=== PATIENT | female | born 1985 | race Hispanic/Latino ===

== ENCOUNTER 2018-08-06 22:28 | Emergency (ER) | payer BC ==
[~2018-08-06] VITALS: Ht 152.4 cm; Wt 67.1 kg
--- OUTSIDE RECORDS SUMMARY | 2018-08-06 22:30 | XMS REPORT | Clinical Summary ---
Author Author [facility] Address Unknown Phone Unavailable Care Team Providers Care Targeting Acquisition Officer Name Role Phone Asked, No Pcp PCP Unavailable Allergies No Known Allergies Medications End Date Status Medication Sig Dispensed Refills Start Date 08/11/2018 Active cefdinir (OMNICEF) 300 MG Take 1 20 capsule 0 capsule capsule (300 9 mg total) by mouth 2 (two) times a day for 10 days. Active meloxicam (MOBIC) 15 mg Take 1 tablet 10 tablet 0 tablet (15 mg total) 9 by mouth daily as needed for mild pain for up to 10 doses. 08/04/2018 acetaminophen-codeine Take 1 tablet 10 tablet 0 (TYLENOL WITH CODEINE #3) by mouth 9 300-30 mg per tablet every 6 (six) hours as needed for moderate pain for up to 10 doses. Active Problems Not on file Encounters Care Team Description Date Type Specialty Rasheed Castellano, ANTIONETTE Lawson, Shine Alford, Pyelonephritis (Primary Dx); Migraine without aura and without status migrainosus, not intractable 08/01/2018 Emergency Emergency Medicine after 08/05/2017 Social History Date Tobacco Use Types Packs/Day Years Used Never Assessed Sex Assigned at Date Recorded Not on file Industry Job Start Date Occupation Not on file Not on file Not on file Travel End Travel History Travel Start No recent travel history available. Last Filed Vital Signs Time Taken Vital Sign Reading 08/01/2018 9:24 PM CDT Blood Pressure 127/84 08/01/2018 9:24 PM CDT Pulse 91 08/01/2018 9:24 PM CDT Temperature 37 C (98.6 F) 08/01/2018 9:24 PM CDT Respiratory Rate 15 08/01/2018 9:24 PM CDT Oxygen Saturation 100% - Inhaled Oxygen - Concentration - Weight - 08/01/2018 4:35 PM CDT Height 152.4 cm (5') - Body Mass Index - Plan of Treatment Health Maintenance Due Date Last Done Comments CERVICAL CANCER SCREENING 01/18/2004 INFLUENZA VACCINE 11/06/2018 Procedures Comments Procedure Name Priority Date/Time Associated Diagnosis CT ABDOMEN PELVIS W STAT 08/01/2018 CONTRAST 7:12 PM CDT URINE CULTURE STAT 08/01/2018 6:05 PM CDT GRAM STAIN STAT 08/01/2018 6:05 PM CDT ESTIMATED GFR STAT 08/01/2018 5:37 PM CDT PARTIAL THROMBOPLASTIN STAT 08/01/2018 TIME (PTT) 5:37 PM CDT PROTHROMBIN TIME WITH INR STAT 08/01/2018 5:37 PM CDT HCG QUALITATIVE, URINE STAT 08/01/2018 SCREEN 5:37 PM CDT URINALYSIS SCREEN AND STAT 08/01/2018 MICROSCOPY, WITH REFLEX 5:37 PM CDT TO CULTURE LIPASE LEVEL STAT 08/01/2018 5:37 PM CDT COMPREHENSIVE METABOLIC STAT 08/01/2018 PANEL 5:37 PM CDT HC COMPLETE BLD COUNT STAT 08/01/2018 W/AUTO DIFF 5:37 PM CDT after 08/05/2017 Results * CT Abdomen Pelvis W Contrast (08/01/2018 7:12 PM CDT) Narrative Performed At EXAMINATION:CT ABDOMEN PELVIS W CONTRAST [facility] CLINICAL HISTORY:lower abdominalbilateral flank tenderness TECHNIQUE: Multiple axial images of the abdomen and pelvis were obtained following intravenous administration of iodinated contrast. Sagittal and coronal computerized reformatted images were also obtained. Approximately 75 cc of Omnipaque [address] scan performed using radiation dose reduction techniques. Technical factors are evaluated and adjusted to ensure appropriate moderation of exposure. Automated dose management technology is applied to adjust the radiation dose to minimize expose whileachieving a diagnostic quality image. COMPARISON:None. FINDINGS: Lung bases: The lung bases are unremarkable. Liver: The liver is normal in attenuation, contour and sizeNo enhancing mass is seen. There is no intrahepatic biliary dilatation.. . Gallbladder: Surgically absent.. Pancreas: The pancreas is normal in appearance. No inflammatory process. The pancreatic duct is within normal limits. Spleen: The spleen is normal in appearance.. Kidneys and ureters: The kidneys function symmetrically. There is no enhancing renal lesion. No renal stone is seen. There is no evidence of hydronephrosis.. The ureters are normal in course and caliber. Adrenal glands: Unremarkable. GI tract: The small bowel is normal in course and caliber. Retained fecal debris is seen. The colon is otherwise unremarkable. No bowel wall thickening is identified. There is no acute inflammatory process. The appendix is normal. No right lower quadrant inflammation is seen. The stomach is unremarkable. Fluid: None. Pelvis: Bladder: The urinary bladder is unremarkable. Genitalia: Probable bilateral ovarian follicular changes are noted. Limited evaluation of the uterus is unremarkable.. Fluid: None. Bones: Unremarkable. Retroperitoneum/intraperitoneum: No retroperitoneal or mesenteric pathologic lymphadenopathy is seen. Vasculature: No evidence of aortic aneurysm or dissection.The mesenteric vessels and visceral vessel are patent. Abdominal wall: Unremarkable. IMPRESSION: No CT evidence of intra-abdominal or pelvic findings. No CT evidence of pyelonephritis or obstructive uropathy. No CT evidence of appendicitis, colitis or bowel obstruction. [id number] Procedure Note Hm Interface, Radiology Results Incoming - 08/01/2018 7:26 PM CDT EXAMINATION: CT ABDOMEN PELVIS W CONTRAST CLINICAL HISTORY: lower abdominal bilateral flank tenderness TECHNIQUE: Multiple axial images of the abdomen and pelvis were obtained following intravenous administration of iodinated contrast. Sagittal and coronal computerized reformatted images were also obtained. Approximately 75 cc of Omnipaque [address] scan performed using radiation dose reduction techniques. Technical factors are evaluated and adjusted to ensure appropriate moderation of exposure. Automated dose management technology is applied to adjust the radiation dose to minimize expose while achieving a diagnostic quality image. COMPARISON: None. FINDINGS: Lung bases: The lung bases are unremarkable. Liver: The liver is normal in attenuation, contour and size No enhancing mass is seen. There is no intrahepatic biliary dilatation.. . Gallbladder: Surgically absent.. Pancreas: The pancreas is normal in appearance. No inflammatory process. The pancreatic duct is within normal limits. Spleen: The spleen is normal in appearance.. Kidneys and ureters: The kidneys function symmetrically. There is no enhancing renal lesion. No renal stone is seen. There is no evidence of hydronephrosis.. The ureters are normal in course and caliber. Adrenal glands: Unremarkable. GI tract: The small bowel is normal in course and caliber. Retained fecal debris is seen. The colon is otherwise unremarkable. No bowel wall thickening is identified. There is no acute inflammatory process. The appendix is normal. No right lower quadrant inflammation is seen. The stomach is unremarkable. Fluid: None. Pelvis: Bladder: The urinary bladder is unremarkable. Genitalia: Probable bilateral ovarian follicular changes are noted. Limited evaluation of the uterus is unremarkable.. Fluid: None. Bones: Unremarkable. Retroperitoneum/intraperitoneum: No retroperitoneal or mesenteric pathologic lymphadenopathy is seen. Vasculature: No evidence of aortic aneurysm or dissection. The mesenteric vessels and visceral vessel are patent. Abdominal wall: Unremarkable. IMPRESSION: No CT evidence of intra-abdominal or pelvic findings. No CT evidence of pyelonephritis or obstructive uropathy. No CT evidence of appendicitis, colitis or bowel obstruction. [id number] Performing Organization Address City/State/Zipcode Phone Number [facility] [address] [place] [address] * Gram stain (08/01/2018 6:05 PM CDT) Gram stain result Many WBC's [facility] Occasional Gram positive rods [facility] Many Gram negative rods Comment: Specimen Information Specimen Source: Urine Specimen Site: Clean catch Specimen Urine Performing Organization Address City/[facility] Phone Number [facility] DEPARTMENT OF [address] [place] [address] PATHOLOGY AND GENOMIC MEDICINE [address] * Urine culture (08/01/2018 6:05 PM CDT) Urine culture isolate Escherichia coli [facility] >10-5 cfu/ml [facility]OS[facility] (A) Comment: Specimen Information Specimen Source: Urine Specimen Site: Clean catch Specimen Urine Antibiotic Method Susceptibility Organism Ampicillin JANNA <=2 mcg/mL: Susceptible Escherichia coli Amoxicillin/Clavulanate JANNA 4/2 mcg/mL: Susceptible Escherichia coli Amikacin JANNA <=4 mcg/mL: Susceptible Escherichia coli Aztreonam JANNA <=1 mcg/mL: Susceptible Escherichia coli Ceftazidime JANNA <=0.5 mcg/mL: Susceptible Escherichia coli Ciprofloxacin JANNA <=0.5 mcg/mL: Susceptible Escherichia coli Ceftriaxone JANNA <=0.5 mcg/mL: Susceptible Escherichia coli Cefuroxime Sodium JANNA <=4 mcg/mL: Susceptible Escherichia coli Cefazolin JANNA <=1 mcg/mL: Susceptible Escherichia coli Cefepime JANNA <=0.5 mcg/mL: Susceptible Escherichia coli Nitrofurantoin JANNA <=16 mcg/mL: Susceptible Escherichia coli Cefoxitin JANNA <=4 mcg/mL: Susceptible Escherichia coli Gentamicin JANNA <=1 mcg/mL: Susceptible Escherichia coli Imipenem JANNA <=0.25 mcg/mL: Susceptible Escherichia coli Levofloxacin JANNA <=1 mcg/mL: Susceptible Escherichia coli Meropenem JANNA <=0.125 mcg/mL: Susceptible Escherichia coli Tobramycin JANNA 1 mcg/mL: Susceptible Escherichia coli Ampicillin/Sulbactam JANNA 2/1 mcg/mL: Susceptible Escherichia coli Trimethoprim/Sulfamethoxazole JANNA <=0.5/9.5 mcg/mL: Susceptible Escherichia coli Tetracycline JANNA <=1 mcg/mL: Susceptible Escherichia coli Piperacillin/Tazobactam JANNA <=2/4 mcg/mL: Susceptible Escherichia coli Ertapenem JANNA <=0.125 mcg/mL: Susceptible Escherichia coli Tigecycline JANNA <=0.5 mcg/mL: Susceptible Escherichia coli Performing Organization Address City/State/Zipcode Phone Number [facility] DEPARTMENT OF [address] [place] [id number] PATHOLOGY AND GENOMIC MEDICINE [address] * Urinalysis screen and microscopy, with reflex to culture (08/01/2018 5:37 PM CDT) Specimen site Clean catch [facility] Color, UA Yellow [facility] Appearance, UA Cloudy [facility] Specific gravity, UA 1.017 1.001 - 1.035 [facility] pH, UA 6.0 5.0 - 8.5 [facility] Protein, UA 1+ (A) Negative [facility] Glucose, UA Negative Negative [facility] Ketones, UA Negative Negative [facility] Bilirubin, UA Negative Negative [facility] Blood, UA Small (A) Negative [facility] Nitrite, UA Positive (A) Negative [facility] Urobilinogen, UA 2.0 (A) <2.0 [facility] Leukocyte esterase, UA Large (A) Negative [facility] Epithelial cells, UA Moderate /HPF [facility] WBC, UA 61-80 (H) 0 - 4 /HPF [facility] RBC, UA None seen 0 - 5 /HPF [facility] Bacteria, UA Many (A) None seen [facility] Yeast, UA None seen [facility] Yeast with pseudohyphae, None seen [facility] UA [facility] Specimen Urine Performing Organization Address [facility] Centercomi Phone Number [address] [place] [address] PATHOLOGY AND GENOMIC MEDICINE [address] * Estimated GFR (08/01/2018 5:37 PM CDT) Estimated GFR 83 mL/min/1.73 m2 [facility] Comment: [facility] CatergoryUnitsInte rpretation G1 >=90 Normal or high G2 60-89Mildly decreased [id number] Mildly to moderately decreased [id number] Moderately to severely decreased G4 15-29Severely decreased G5 <15Kidney failure The eGFR was calculated using the Chronic Kidney Disease Epidemiology Collaboration (CKD-EPI) equation. Interpretation is based on recommendations of the National Kidney Foundation-Kidney Disease Outcomes Quality Initiative (NKF-KDOQI) published in 2014. Specimen Plasma specimen Performing Organization Address [facility] Phone Number [address] [place] [address] PATHOLOGY AND GENOMIC MEDICINE [address] * hCG qualitative, urine screen (08/01/2018 5:37 PM CDT) hCG qualitative, urine Negative Negative [facility] Comment: [facility] The manufacturers stated sensitivity of HcG test for serum is >/=10 mIU/ml and urine is >/=20mIU/ml. Specimen Urine Performing Organization Address [facility] Phone Number [address] [place] [address] PATHOLOGY AND GENOMIC MEDICINE [address] * Partial thromboplastin time, activated (08/01/2018 5:37 PM CDT) PTT 32.2 23.0 - 36.0 sec [facility] Comment: [facility] PTT therapeutic range for unfractionated heparin is 61.0-112.0 seconds which corresponds to Anti-Xa 0.3-0.7 U/ml. Specimen Blood Performing Organization Address [facility] Phone Number [address] [place] [address] PATHOLOGY AND [facility] MEDICINE [address] * Prothrombin time with INR (08/01/2018 5:37 PM CDT) Prothrombin time 12.6 11.5 - 14.[address] [facility] INR 1.0 [facility] Comment: [facility] The International Normalized Ratio (INR) is a therapeutic monitoring tool for patients who are stable on oral anticoagulant therapy. An INR of 2.0-3.0 is suggested for deep vein thrombosis/pulmonary embolism. Specimen Blood Performing Organization Address [facility] Phone Number [address] [place] [address] PATHOLOGY AND GENOMIC MEDICINE [address] * CBC with platelet and differential (08/01/2018 5:37 PM CDT) WBC 7.38 4.50 - 11.00 k/uL [facility] RBC 4.57 4.20 - 5.50 m/uL [facility] HGB 13.4 12.0 - 16.0 g/dL [facility] HCT 40.2 37.0 - 47.0 % [facility] MCV 88.0 82.0 - 100.[address] [facility] MCH 29.3 27.0 - 34.[address] [facility] MCHC 33.3 31.0 - 37.0 g/dL [facility] RDW - SD 39.8 37.0 - 55.[address] [facility] MPV 8.8 8.8 - 13.[address] [facility] Platelet count 273 150 - 400 k/uL [facility] Nucleated RBC 0.00 /[address] [facility] Neutrophils 67.4 39.0 - 69.0 % [facility] Lymphocytes 23.2 (L) 25.0 - 45.0 % [facility] Monocytes 8.4 0.0 - 10.0 % [facility] Eosinophils 0.3 0.0 - 5.0 % [facility] Basophils 0.4 0.0 - 1.0 % [facility] Specimen Blood Performing Organization Address [facility] Phone Number [address] [place] [address] PATHOLOGY AND [facility] MEDICINE [address] * Lipase level (08/01/2018 5:37 PM CDT) Lipase 30 13 - 60 U/L [facility] Specimen Plasma specimen Performing Organization Address City/[facility] Phone Number [address] [place] [address] PATHOLOGY AND [facility] MEDICINE [address] * Comprehensive metabolic panel (08/01/2018 5:37 PM CDT) Sodium 142 135 - 148 mEq/L [facility] Potassium 3.9 3.5 - 5.0 mEq/L [facility] Chloride 105 98 - 112 mEq/L [facility] CO2 24 24 - 31 mEq/L [facility] Anion gap 13@ANIO 7 - 15 mEq/L [facility] BUN 14 6 - 20 mg/dL [facility] Creatinine 0.90 0.50 - 0.90 mg/dL [facility] Glucose 97 65 - 99 mg/dL [facility] Calcium 9.6 8.3 - 10.2 mg/dL [facility] Protein 8.1 6.3 - 8.3 g/dL [facility] Comment: [facility] 4.6-7.0 g/dL 1 week 4.4-7.6 g/dL 7 months-1year 5.1-7.3 g/dL 1-2 years5.6-7 .5 g/dL >3 years6.0-8 .0 g/dL 18-150 6.3-8.3 g/dL Albumin 4.2 3.5 - 5.0 g/dL [facility] A/G ratio 1.1 0.7 - 3.8 [facility] Alkaline phosphatase 67 35 - 104 U/L [facility] AST 22 10 - 35 U/L [facility] ALT 16 5 - 50 U/L [facility] Total bilirubin 0.7 0.0 - 1.2 mg/dL [facility] Specimen Plasma specimen Performing Organization Address City/State/Zipcode [place] [address] [place] [address] PATHOLOGY AND GENOMIC MEDICINE [facility] [id number] [place] [address] [place] [id number] [facility] after 08/05/2017 Advance Directives Patient has advance care planning documents on file. For more information, ely garcia contact: [facility] [address] [place] [address]
[2018-08-07] MEDS ORDERED: BACTRIM DS TAB1 EACH PO (00:48)
[2018-08-07] MEDS ORDERED: PHENAZOPYRIDIN200 MG PO (00:56)
[2018-08-07] MEDS ORDERED: LEVSIN0.125 MG PO (01:02)
[2018-08-07] MEDS ORDERED: ULTRAM50 MG PO (01:03)
[2018-08-07] MEDS ORDERED: ONDANSETRON ODT8 MG PO (01:05)
[2018-08-07] MEDS ORDERED: IBUPROFEN 600 MG TAB PO STA (01:11)
== END 2018-08-07 01:45 | disposition home or self-care (01) ==
LOC: FSED 22:28
DX: R30.0 Dysuria (principal); M54.5 Low back pain; N30.00 Acute cystitis without hematuria
CPT/HCPCS: 81003; 99283